=== PATIENT | female | born 1950 | race Asian ===

== ENCOUNTER 2023-04-21 21:44 | Inpatient (IN) | payer MEDICARE ==
[~2023-04-21] VITALS: Ht 157.5 cm; Wt 58.4 kg
[2023-04-21 22:10] LABS: BASOPHILS % (AUTO) 0.3 % (0.0-2.0); HEMOGLOBIN 13.8 g/dL (12.0-16.0); LYMPHOCYTES # (AUTO) 2.2 K/uL (1.0-4.8); LYMPHOCYTES % (AUTO) 43.5 % (22.0-44.0); MEAN CORPUSCULAR HEMOGLOBIN 31.8 pg (26.0-34.0); MEAN CORPUSCULAR HGB CONC 32.9 G/dL (31.0-37.0); MEAN CORPUSCULAR VOLUME 97 fL (80-100); MONOCYTES # (AUTO) 0.6 K/uL (0.1-1.0); MONOCYTES % (AUTO) 12.6 % (2.0-9.0); NEUTROPHILS # (AUTO) 2.1 K/uL (1.8-7.7); NEUTROPHILS % (AUTO) 40.6 % (40.0-70.0); PLATELET COUNT (AUTO) 113 K/uL (150-450); RED BLOOD CELL COUNT(AUTO) 4.34 MIL/uL (4.00-5.20); RED CELL DISTRIBUTION WIDTH 12.7 % (11.5-14.5); WHITE BLOOD COUNT (AUTO) 5.1 K/uL (4.5-11.0)
[2023-04-21 22:23] LABS: CALCIUM, TOTAL 8.9 mg/dL (8.8-10.5); CREATININE 0.97 mg/dL (0.60-1.30); POTASSIUM 3.5 mmol/L (3.5-5.1)
[2023-04-21 22:26] LABS: PROTHROMBIN TIME 10.8 SEC (9.4-11.6)
[2023-04-21] MEDS ORDERED: SODIUM CHLORIDE 0.9% 100 ML ONE (22:26)
[2023-04-21] MEDS ORDERED: IOHEXOL 350 MG/ML 100 ML VIAL ONE (22:26)
[2023-04-21 22:29] LABS: ALBUMIN 3.8 g/dL (3.4-5.0); BILIRUBIN,TOTAL 0.5 mg/dL (0.1-1.0); TOTAL PROTEIN, SERUM 7.3 g/dL (6.4-8.2)
[2023-04-21 22:31] LABS: TROPONIN I-HIGH SENSITIVITY 4 ng/L (<51)
[2023-04-21 22:41] LABS: COVID AG,FIA SOURCE NASAL SWAB
[2023-04-21] MEDS ORDERED: CLOPIDOGREL BISULFATE 75 MG TABLET PO ONE (22:45)
[2023-04-21] MEDS ORDERED: ASPIRIN 325 MG TABLET PO ONE (22:45)
[2023-04-21 23:01] LABS: SARS-COV2 (COVID) ANTIGEN,FIA Negative (Negative)
[2023-04-21 23:47] LABS: CHOL/HDL RATIO 1.8 (3.9-5.7)
[2023-04-22] VITALS (7 sets, daily range): BP systolic 110–126; BP diastolic 66–77; PULSE 59–69; RESP 18–20; TEMP 97.6–97.9; O2SAT 98
[2023-04-22] MEDS ORDERED: INFLUENZA VIRUS VACCINE QVS 2023-24 (6MO+)/PF 60 MCG/0.5 ML SYRINGE IM. ONE (04:30)
[2023-04-22] MEDS ORDERED: DEXTROSE 50%-WATER 25 GM/50 ML SYRINGE IVP PRN (08:00)
[2023-04-22] MEDS ORDERED: INSULIN LISPRO 100 UNITS/ML SQ PRN (08:00)
[2023-04-22] MEDS ORDERED: MAGNESIUM HYDROXIDE SUSPENSION 30 ML UDCUP PO PRN (08:00)
[2023-04-22] MEDS ORDERED: ACETAMINOPHEN 325 MG TABLET PO PRN (08:00)
[2023-04-22] MEDS: ATORVASTATIN CALCIUM 40 MG TABLET PO SCH (09:01)
[2023-04-22] MEDS: FAMOTIDINE 20 MG TABLET PO SCH (09:01)
[2023-04-22] MEDS: HEPARIN SODIUM,PORCINE 5,000 UNITS/ML VIAL SQ SCH ×2 (09:01→16:59)
[2023-04-22] MEDS: ASPIRIN 81 MG CHEWABLE TABLET PO SCH (09:01)
[2023-04-22 09:08] LABS: APPEARANCE,URINE CLEAR (CLEAR); BILIRUBIN,URINE NEGATIVE (NEGATIVE); COLOR,URINE LIGHT YELLOW (YELLOW); GLUCOSE, URINE (UA) 70-100 mg/dL (NEGATIVE); KETONES,URINE NEGATIVE (NEGATIVE); LEUKOCYTE ESTERASE ,URINE MODERATE (NEGATIVE); NITRATE,URINE NEGATIVE (NEGATIVE); OCCULT BLOOD,URINE NEGATIVE (NEGATIVE); PROTEIN,URINE TRACE mg/dL (NEGATIVE); UROBILINOGEN,URINE <=1.0 mg/dL (<=1.0)
[2023-04-22 09:14] LABS: ALCOHOL, URINE DRUG SCREEN NEGATIVE (NEGATIVE); AMPHET/METH SCREEN,URINE NEGATIVE (NEGATIVE); BARBITURATE SCREEN, URINE NEGATIVE (NEGATIVE); BENZODIAZEPINES SCREEN,URINE NEGATIVE (NEGATIVE); CANNABINOID SCREEN,URINE NEGATIVE (NEGATIVE); COCAINE SCREEN,URINE NEGATIVE (NEGATIVE); METHADONE SCREEN, URINE NEGATIVE (NEGATIVE); OPIATE SCREEN,URINE NEGATIVE (NEGATIVE); PHENCYCLIDINE SCREEN,URINE NEGATIVE (NEGATIVE)
[2023-04-22 09:25] LABS: RBC,URINE None Seen /HPF (0-2)
[2023-04-22 09:26] LABS: BACTERIA,URINE None Seen /HPF (None Seen); SQUAMOUS EPITHELIAL CELL,UR Few /LPF (None Seen); WBC,URINE 0-2 /HPF (0-5)
[2023-04-22 11:06] LABS: GLUCOMETER DEV NAME(LOC) 5S.2C; GLUCOSE,POINT OF CARE 116 MG/DL (70-110)
[2023-04-22 14:41] LABS: GLUCOMETER DEV NAME(LOC) 5S.2C; GLUCOSE,POINT OF CARE 140 MG/DL (70-110)
[2023-04-22 20:30] LABS: GLUCOMETER DEV NAME(LOC) 5S.2C; GLUCOSE,POINT OF CARE 148 MG/DL (70-110)
[2023-04-22 22:21] LABS: GLUCOMETER DEV NAME(LOC) 5S.2C; GLUCOSE,POINT OF CARE 165 MG/DL (70-110)
[2023-04-23 01:42] VITALS: BP 143/69; PULSE 59; RESP 18; TEMP 97.6
[2023-04-23 05:12] VITALS: BP 134/84; PULSE 64; RESP 18; TEMP 97.5
[2023-04-23 07:58] VITALS: BP 117/76; PULSE 60; RESP 16; TEMP 97.4
[2023-04-23] MEDS: HEPARIN SODIUM,PORCINE 5,000 UNITS/ML VIAL SQ SCH ×2 (08:00)
[2023-04-23] MEDS: ATORVASTATIN CALCIUM 40 MG TABLET PO SCH (08:36)
[2023-04-23] MEDS: FAMOTIDINE 20 MG TABLET PO SCH (08:36)
[2023-04-23] MEDS: ASPIRIN 81 MG CHEWABLE TABLET PO SCH (08:36)
[2023-04-23 11:54] VITALS: BP 116/74; PULSE 67; RESP 16; TEMP 98
[2023-04-23] MEDS ORDERED: ASPI-1450 PO (12:51)
[2023-04-23 12:52] LABS: GLUCOMETER DEV NAME(LOC) 5S.2C; GLUCOSE,POINT OF CARE 93 MG/DL (70-110)
[2023-04-23] MEDS ORDERED: ATOR20TA PO (12:52)
[2023-04-23] MEDS ORDERED: CLOP75TA60 PO (12:52)
[2023-04-24] MEDS ORDERED: CLOPIDOGREL BISULFATE 75 MG TABLET PO SCH (09:00)
== END 2023-04-23 14:35 | disposition home or self-care (01) | DRG 69 ==
LOC: EMS 21:45 → 5S 04-22 00:01 → UNDOADMIN 04-22 00:01 → 5S 04-22 01:30
PROVIDERS: ADMIT Internal Medicine; ATTEND Internal Medicine
DX: G45.9 Transient cerebral ischemic attack, unspecified (principal); E11.9 Type 2 diabetes mellitus without complications; I10 Essential (primary) hypertension; Z20.822 Contact with and (suspected) exposure to COVID-19; E78.00 Pure hypercholesterolemia, unspecified; R48.2 Apraxia; Z83.3 Family history of diabetes mellitus; Z88.2 Allergy status to sulfonamides; Z91.013 Allergy to seafood
CPT/HCPCS: 70496; 70498; 70551; 71045; 80053; 80061; 80307; 81001; 82948; 82962; 84484; 85025; 85610; 85730; 86850; 86900; 86901; 92610; 93005; 93306; 97163; 97165; 97535; 99291; J1644; J7050; Q9967; 36415-L1; 36415-TC; 70450; 70450-TC